=== PATIENT | female | born 1990 | race Caucasian/White ===

== ENCOUNTER 2017-10-21 09:17 | Emergency (ER) | payer OTHER ==
[~2017-10-21] VITALS: Ht 180.3 cm; Wt 80.7 kg
[~2017-10-21 09:17] MED LIST: FLEXERIL10 MG PO; MELOXICAM15 MG PO; TRAMADOL HCL50 MG PO
[2017-10-21] MEDS ORDERED: PREDNISONE20 MG PO (10:21)
[2017-10-21] MEDS ORDERED: VENTOLIN HFA18 GM INH (10:21)
== END 2017-10-21 10:31 | disposition home or self-care (01) ==
LOC: ED 09:17
DX: J45.901 Unspecified asthma with (acute) exacerbation (principal); Z79.899 Other long term (current) drug therapy; Z87.891 Personal history of nicotine dependence
CPT/HCPCS: 99283; J7512